=== PATIENT | male | born 1940 | race Two or more races ===

== ENCOUNTER 2020-11-20 07:16 | Inpatient (IN) | payer OTHER ==
[~2020-11-20] VITALS: Ht 182.9 cm; Wt 90.7 kg
[2020-11-20] MEDS ORDERED: DEXTROSE 50%-WATER 50 ML DISP.SYRIN IV ONE (07:30)
[2020-11-20] MEDS ORDERED: IV NS 0.9% 500 ML BAG IV ONE (07:30)
[2020-11-20 08:03] LABS: BASOPHILS % (AUTO) 0.3 % (0.0-2.0); EOSINOPHILS % (AUTO) 0.1 % (0.0-6.0); HEMATOCRIT 37 % (39-51); HEMOGLOBIN 12.2 g/dL (13.5-17.5); LYMPHOCYTES # (AUTO) 0.8 /CMM (0.8-4.8); LYMPHOCYTES % (AUTO) 13.7 % (20.0-44.0); MEAN CORPUSCULAR HGB CONC 33 g/dl (31.0-36.0); MEAN CORPUSCULAR VOLUME 84 fL (80-96); MONOCYTES # (AUTO) 0.4 /CMM (0.1-1.30); MONOCYTES % (AUTO) 6.6 % (2.0-12.0); NEUTROPHILS # (AUTO) 4.4 /CMM (1.8-8.9); NEUTROPHILS % (AUTO) 79.3 % (43.0-81.0); PLATELET COUNT (AUTO) 336 /CMM (150-450); RED BLOOD CELL COUNT(AUTO) 4.42 MIL/uL (4.5-6.0); WHITE BLOOD COUNT (AUTO) 5.5 K/uL (4.3-11.0)
--- NOTE | 2020-11-20 08:11 | NUR ---
PT REC'D TO ER VIA [facility] PT WEAKNESS BLOOD SUGAR 140 PT WAS D/C FROM [facility] 2 DAYS AGO WENT [facility] STILL WEAKNESS ALTERED IV RT HAND 20G INFUSING NS LABS DRAWN SENT TO LAB
[2020-11-20 08:28] LABS: SERUM AMMONIA 15 umol/L (11-32)
[2020-11-20 08:57] LABS: CALCIUM, SERUM 8.3 mg/dL (8.5-10.1); CARBON DIOXIDE 23 mmol/L (21-32); CHLORIDE 101 mmol/L (98-107); CREATININE 1.4 mg/dL (0.6-1.3); GLUCOSE 138 mg/dL (74-106); POTASSIUM 3.5 mmol/L (3.5-5.1); SODIUM SERUM 133 mmol/L (136-145); UREA NITROGEN, BLOOD 40 mg/dL (7-18)
[2020-11-20 09:03] LABS: ALANINE AMINOTRANSFERASE 19 U/L (12-78); ALKALINE PHOSPHATASE 80 U/L (46-116); ASPARTATE AMINOTRANSFERASE 23 U/L (15-37); BILIRUBIN,DIRECT 0.3 mg/dL (0.0-0.2); BILIRUBIN,TOTAL 0.5 mg/dL (0.2-1.0); TOTAL PROTEIN, SERUM 5.9 g/dL (6.4-8.2)
--- NOTE | 2020-11-20 12:29 | NUR ---
PT SITTING UP IN BED VSS FEEDING HIMSELF , ACCU CK 102
[2020-11-20] MEDS ORDERED: IV NS 0.9% 500 ML IV ONE (13:30)
[2020-11-20] MEDS: Potassium Chloride 10 MEQ in IV D5/ 0.9% NACL 1,000 ML IV PRN (14:38)
[2020-11-20 17:15] LABS: BILIRUBIN,URINE Negative (NEGATIVE); COLOR,URINE YELLOW (YELLOW); LEUKOCYTE ESTERASE ,URINE Negative (NEGATIVE); NITRITE, URINE Negative (NEGATIVE); PROTEIN,URINE Negative (NEGATIVE); UGLUCOSE >=1000 mg/dL (NEGATIVE); UROBILINOGEN,URINE 0.2 EU/dL (0.2)
[2020-11-20 17:23] LABS: BACTERIA,URINE Rare /HPF (None Seen); RBC,URINE 0-2 /HPF (0-2); SQUAMOUS EPITHELIAL CELL,UR Rare /HPF (None Seen); WBC,URINE 0-2 /HPF (0-3)
[2020-11-20 17:35] LABS: CALCIUM, SERUM 7.7 mg/dL (8.5-10.1); CREATININE 1.3 mg/dL (0.6-1.3); POTASSIUM 3.5 mmol/L (3.5-5.1)
--- NOTE | 2020-11-20 18:34 | NUR ---
jhoan ck 161pt eatting dinner
--- NOTE | 2020-11-21 14:46 | NUR ---
GOT CALL FROM MANAGEMENT, ROD PELAYO [phone]
--- NOTE | 2020-11-21 15:30 | NUR ---
CALLED [facility] [phone] TO FOLLOW UP. ITS BEEN ACTIVATED AND SHE WILL CALL US WITH AN ETA
[2020-11-21] MEDS: Potassium Chloride 10 MEQ in IV D5/ 0.9% NACL 1,000 ML IV PRN (16:00)
--- NOTE | 2020-11-21 16:37 | NUR ---
[facility] CALLED PT WILL BE PICKED UP AT 1900 TRANSPORT IS [facility] [phone]
--- NOTE | 2020-11-21 19:40 | NUR ---
PT PICKED UP. TRANSFERED BACK HOME. MORNING SHIFT NURSE SPOKE TO THE PTS FAMILY REAGARDING DISCHARGE.
[2020-11-21 23:29] VITALS: BP 121/76
== END 2020-11-21 19:40 | disposition home or self-care (01) | DRG 177 ==
LOC: ER 07:25 → TRANSITION 12:46
PROVIDERS: ADMIT Internal Medicine; ATTEND Internal Medicine
DX: U07.1 COVID-19 (principal); N17.0 Acute kidney failure with tubular necrosis; E87.1 Hypo-osmolality and hyponatremia; E86.0 Dehydration; E11.9 Type 2 diabetes mellitus without complications; Z86.73 Personal history of transient ischemic attack (TIA), and cerebral infarction without residual deficits; I10 Essential (primary) hypertension; R53.1 Weakness
CPT/HCPCS: 36415; 70450-TC; 71045-TC; 80048-TC; 80076-TC; 81001; 82140-TC; 82962-TC; 84484-TC; 85025-TC; 87086-TC; G0378; J3480; J7040; J7042

== ENCOUNTER 2023-10-02 17:45 | Inpatient (IN) | payer OTHER ==
[~2023-10-02] VITALS: Ht 172.7 cm; Wt 77.6 kg
[2023-10-02] MEDS ORDERED: PANT40TA2 PO (19:32)
[2023-10-02] MEDS ORDERED: GLIP5TAB13 PO (19:32)
[2023-10-02] MEDS ORDERED: HYDR-4076 PO (19:32)
[2023-10-02] MEDS ORDERED: ALLO300T2 PO (19:32)
[2023-10-02] MEDS ORDERED: CLON0.1T PO (19:32)
[2023-10-02] MEDS ORDERED: INSU100V7 SQ (19:32)
[2023-10-02] MEDS ORDERED: FURO-144 PO (19:32)
[2023-10-02] MEDS ORDERED: TAMS-12 PO (19:32)
[2023-10-02] MEDS ORDERED: FERR325T28 PO (19:32)
[2023-10-02] MEDS ORDERED: GABA300C PO (19:32)
[2023-10-02] MEDS ORDERED: LOSA50TA39 PO (19:32)
[2023-10-02] MEDS ORDERED: AMLO10TA4 PO (19:32)
[2023-10-02 19:59] LABS: BASOPHILS % (AUTO) 0.1 % (0.0-2.0); EOSINOPHILS % (AUTO) 0.1 % (0.0-6.0); HEMATOCRIT 27 % (39-51); HEMOGLOBIN 8.8 g/dL (13.5-17.5); LYMPHOCYTES # (AUTO) 0.3 K/uL (0.8-4.8); LYMPHOCYTES % (AUTO) 1.2 % (20.0-44.0); MEAN CORPUSCULAR HEMOGLOBIN 26 PG (26.0-33.0); MEAN CORPUSCULAR HGB CONC 32 g/dl (31.0-36.0); MEAN CORPUSCULAR VOLUME 79 fL (80-96); MONOCYTES # (AUTO) 0.5 K/uL (0.1-1.30); MONOCYTES % (AUTO) 2.4 % (2.0-12.0); NEUTROPHILS # (AUTO) 19.8 K/uL (1.8-8.9); NEUTROPHILS % (AUTO) 96.2 % (43.0-81.0); PLATELET COUNT (AUTO) 484 K/uL (150-450); RED BLOOD CELL COUNT(AUTO) 3.45 MIL/uL (4.5-6.0); WHITE BLOOD COUNT (AUTO) 20.6 K/uL (4.3-11.0)
[2023-10-02 20:29] LABS: CALCIUM, SERUM 8.6 mg/dL (8.5-10.1); CARBON DIOXIDE 22 mmol/L (21-32); CHLORIDE 99 mmol/L (98-107); CREATININE 2.2 mg/dL (0.6-1.3); GLUCOSE 307 mg/dL (74-106); POTASSIUM 5.4 mmol/L (3.5-5.1); SODIUM SERUM 130 mmol/L (136-145); UREA NITROGEN, BLOOD 52 mg/dL (7-18)
[2023-10-02 20:32] LABS: INR 1.15 (0.91-1.10); PARTIAL THROMBOPLASTIN TIME 32.5 SEC (24.3-34.3); PROTHROMBIN TIME 12.1 SECS (9.2-11.1)
[2023-10-02 20:42] LABS: ALANINE AMINOTRANSFERASE 19 U/L (12-78); ALBUMIN 2.3 g/dL (3.4-5.0); ALKALINE PHOSPHATASE 123 U/L (46-116); ASPARTATE AMINOTRANSFERASE 13 U/L (15-37); BILIRUBIN,DIRECT 0.1 mg/dL (0.0-0.2); BILIRUBIN,TOTAL 0.2 mg/dL (0.2-1.0); TOTAL PROTEIN, SERUM 6.6 g/dL (6.4-8.2)
[2023-10-02 20:56] LABS: BAND % (MANUAL) 7 % (0.0-5.0); NEUTROPHILS % (MANUAL) 90 (42-76)
[2023-10-02 20:57] LABS: ANISOCYTOSIS 1+; HYPOCHROMASIA 1+; LYMPHOCYTES % (MANUAL) 2 % (16-48); MONOCYTES % (MANUAL) 1 % (0-11.0); PLATELET ESTIMATE ADEQUATE; TARGET CELLS 1+
[2023-10-02] MEDS ORDERED: CEFTRIAXONE 1GM BAG (ER ONLY) 50 ML IV ONE (21:00)
[2023-10-02 21:09] LABS: APPEARANCE,URINE CLEAR (CLEAR); BILIRUBIN,URINE NEGATIVE (NEGATIVE); BLOOD, URINE NEGATIVE Ery/uL (NEGATIVE); COLOR,URINE YELLOW (YELLOW); KETONES,URINE NEGATIVE (NEGATIVE); LEUKOCYTE ESTERASE ,URINE 2+ (NEGATIVE); NITRITE, URINE NEGATIVE (NEGATIVE); PROTEIN,URINE TRACE mg/dl (NEGATIVE); UGLUCOSE NEGATIVE (NEGATIVE); UROBILINOGEN,URINE 0.2 EU/dL (0.2)
[2023-10-02 21:19] LABS: ADD URINE CULTURE YES; BACTERIA,URINE 3+ /HPF (None Seen); RBC,URINE 0-2 /HPF (0-2); SQUAMOUS EPITHELIAL CELL,UR Few /HPF (None Seen); WBC,URINE TOO NUMEROUS TO COUN /HPF (0-3)
[2023-10-02] MEDS ORDERED: AZITHROMYCIN 500 MG VIAL ONE (21:23)
[2023-10-02] MEDS: AZITHROMYCIN 500 MG in IV D5W 250 ML IV ONE ×2 (21:50→21:59)
[2023-10-02] MEDS ORDERED: ASPIRIN 81 MG TAB.CHEW PO ONE (22:30)
[2023-10-02] MEDS ORDERED: IV NS 0.9% 1,000 ML BAG IV ONE (22:30)
[2023-10-03 07:41] LABS: BASOPHILS % (AUTO) 0.2 % (0.0-2.0); EOSINOPHILS % (AUTO) 0.1 % (0.0-6.0); HEMATOCRIT 28 % (39-51); HEMOGLOBIN 8.7 g/dL (13.5-17.5); LYMPHOCYTES # (AUTO) 0.7 K/uL (0.8-4.8); LYMPHOCYTES % (AUTO) 3.5 % (20.0-44.0); MEAN CORPUSCULAR HEMOGLOBIN 25 PG (26.0-33.0); MEAN CORPUSCULAR HGB CONC 32 g/dl (31.0-36.0); MEAN CORPUSCULAR VOLUME 80 fL (80-96); MONOCYTES # (AUTO) 0.9 K/uL (0.1-1.30); MONOCYTES % (AUTO) 4.4 % (2.0-12.0); NEUTROPHILS # (AUTO) 18.5 K/uL (1.8-8.9); NEUTROPHILS % (AUTO) 91.8 % (43.0-81.0); PLATELET COUNT (AUTO) 410 K/uL (150-450); RED BLOOD CELL COUNT(AUTO) 3.43 MIL/uL (4.5-6.0); RED CELL DISTRIBUTION WIDTH 18.6 % (11.5-15.0); WHITE BLOOD COUNT (AUTO) 20.1 K/uL (4.3-11.0)
[2023-10-03 07:46] LABS: CALCIUM, SERUM 8.1 mg/dL (8.5-10.1); CARBON DIOXIDE 23 mmol/L (21-32); CHLORIDE 101 mmol/L (98-107); GLUCOSE 227 mg/dL (74-106); POTASSIUM 5.6 mmol/L (3.5-5.1); SODIUM SERUM 132 mmol/L (136-145); UREA NITROGEN, BLOOD 51 mg/dL (7-18)
[2023-10-03 08:01] LABS: THYROID STIMULATING HORMONE 0.609 uIU/mL (0.358-3.74)
[2023-10-03] MEDS ORDERED: IV NS 0.9% 500 ML IV SCH (10:00)
[2023-10-03] MEDS: METOPROLOL TARTRATE 25 MG TABLET PO SCH ×2 (10:26→23:03)
[2023-10-03] MEDS ORDERED: *INSULIN REGULAR(HUMULIN R)HUM 100 UNIT/ML VIAL SQ PRN ×2 (10:30→11:30)
[2023-10-03] MEDS ORDERED: INSULIN REGULAR, HUMAN 100 UNIT/ML 3 ML VIAL SQ PRN ×3 (10:30→12:00)
[2023-10-03] MEDS ORDERED: DEXTROSE 50%-WATER 50 ML DISP.SYRIN IV PRN ×3 (10:30→12:00)
[2023-10-03] MEDS ORDERED: FERROUS SULFATE (325 MG) 325 MG/TAB TABLET PO SCH (11:00)
[2023-10-03] MEDS: IV NS 0.9% 1,000 ML IV SCH ×2 (11:03→23:01)
[2023-10-03 11:14] LABS: THYROID STIMULATING HORMONE 0.598 uIU/mL (0.358-3.74)
[2023-10-03] MEDS: PANTOPRAZOLE 40 MG TABLET.DR PO SCH ×2 (11:14→16:44)
[2023-10-03] MEDS: TAMSULOSIN 0.4 MG CAP.SR.24H PO SCH (11:15)
[2023-10-03] MEDS: ALLOPURINOL 100 MG TABLET PO SCH (11:15)
[2023-10-03 11:19] LABS: BASOPHILS % (AUTO) 0.2 % (0.0-2.0); EOSINOPHILS % (AUTO) 0.1 % (0.0-6.0); HEMATOCRIT 29 % (39-51); LYMPHOCYTES # (AUTO) 0.6 K/uL (0.8-4.8); MEAN CORPUSCULAR HEMOGLOBIN 26 PG (26.0-33.0); MEAN CORPUSCULAR HGB CONC 31 g/dl (31.0-36.0); MEAN CORPUSCULAR VOLUME 83 fL (80-96); MONOCYTES # (AUTO) 0.8 K/uL (0.1-1.30); MONOCYTES % (AUTO) 3.9 % (2.0-12.0); NEUTROPHILS # (AUTO) 18.1 K/uL (1.8-8.9); NEUTROPHILS % (AUTO) 92.8 % (43.0-81.0); PLATELET COUNT (AUTO) 410 K/uL (150-450); RED BLOOD CELL COUNT(AUTO) 3.46 MIL/uL (4.5-6.0); RED CELL DISTRIBUTION WIDTH 18.3 % (11.5-15.0); WHITE BLOOD COUNT (AUTO) 19.5 K/uL (4.3-11.0)
[2023-10-03 11:30] LABS: CALCIUM, SERUM 9.5 mg/dL (8.5-10.1); CARBON DIOXIDE 23 mmol/L (21-32); CHLORIDE 103 mmol/L (98-107); CREATININE 1.8 mg/dL (0.6-1.3); GLUCOSE 190 mg/dL (74-106); POTASSIUM 5.3 mmol/L (3.5-5.1); SODIUM SERUM 133 mmol/L (136-145); UREA NITROGEN, BLOOD 51 mg/dL (7-18)
[2023-10-03 12:00] VITALS: BP 127/62; TEMP 98.6; O2SAT 95
[2023-10-03] MEDS ORDERED: BLOOD SUGAR DIAGNOSTIC 1 EACH STRIP VI SCH ×2 (12:00)
[2023-10-03] MEDS: BLOOD SUGAR DIAGNOSTIC 1 EACH STRIP VI SCH ×3 (12:02→22:00)
[2023-10-03 12:03] LABS: CHOLESTEROL 179 mg/dL (<200); HDL CHOLESTEROL 31 mg/dL (40-60); LDL 107 mg/dL (0-99); TRIGLYCERIDES 171 mg/dL (30-150)
[2023-10-03] MEDS: GABAPENTIN 300 MG CAPSULE PO SCH ×2 (12:11→16:44)
[2023-10-03 13:30] LABS: THYROID STIMULATING HORMONE 0.647 uIU/mL (0.358-3.74)
[2023-10-03 16:00] VITALS: BP 134/64; TEMP 98.4; O2SAT 97
[2023-10-03] MEDS: *INSULIN REGULAR(HUMULIN R)HUM 100 UNIT/ML VIAL SQ PRN (16:36)
[2023-10-03] MEDS: APIXABAN 2.5 MG TABLET PO SCH (16:48)
[2023-10-03 20:00] VITALS: BP 124/65; TEMP 98.7; O2SAT 92
[2023-10-03] MEDS ORDERED: CEFTRIAXONE 1 G in IV D5W 50 ML IV SCH (21:00)
[2023-10-03] MEDS ORDERED: HEPARIN SODIUM, PORCINE 5000 UNITS/1 ML VIAL SQ SCH (21:00)
[2023-10-03 22:00] VITALS: BP 124/65; TEMP 98.7; O2SAT 92
[2023-10-03] MEDS: AZITHROMYCIN 500 MG in IV D5W 250 ML IV SCH (23:20)
[2023-10-03] MEDS: INSULIN GLARGINE, 100 UNIT/ML CARTRIDGE SQ SCH (23:22)
[2023-10-04] VITALS (73 sets, daily range): BP systolic 80–164; BP diastolic 43–89; TEMP 94.6–98.7; O2SAT 81–100
[2023-10-04] MEDS ORDERED: NOREPINEPHRINE 8 MG in IV NS 0.9% 242 ML IV PRN ×4 (05:00)
[2023-10-04] MEDS ORDERED: NOREPINEPHRINE 4 MG/4 ML AMPUL IV ONE (05:38)
[2023-10-04] MEDS: IV NS 0.9% 1,000 ML IV SCH (07:00)
[2023-10-04] MEDS ORDERED: NOREPINEPHRINE 32 MG in IV NS 0.9% 250 ML IV PRN ×2 (07:30→12:00)
[2023-10-04 08:16] LABS: BASOPHILS % (AUTO) 0.1 % (0.0-2.0); HEMATOCRIT 30 % (39-51); LYMPHOCYTES # (AUTO) 0.4 K/uL (0.8-4.8); LYMPHOCYTES % (AUTO) 1.8 % (20.0-44.0); MEAN CORPUSCULAR HEMOGLOBIN 25 PG (26.0-33.0); MEAN CORPUSCULAR HGB CONC 30 g/dl (31.0-36.0); MEAN CORPUSCULAR VOLUME 83 fL (80-96); MONOCYTES # (AUTO) 0.6 K/uL (0.1-1.30); MONOCYTES % (AUTO) 2.5 % (2.0-12.0); NEUTROPHILS # (AUTO) 23.1 K/uL (1.8-8.9); NEUTROPHILS % (AUTO) 95.6 % (43.0-81.0); PLATELET COUNT (AUTO) 461 K/uL (150-450); RED BLOOD CELL COUNT(AUTO) 3.63 MIL/uL (4.5-6.0); RED CELL DISTRIBUTION WIDTH 19.1 % (11.5-15.0); WHITE BLOOD COUNT (AUTO) 24.2 K/uL (4.3-11.0)
[2023-10-04] MEDS: METOPROLOL TARTRATE 25 MG TABLET PO SCH ×2 (09:00→21:00)
[2023-10-04] MEDS: PANTOPRAZOLE 40 MG TABLET.DR PO SCH ×2 (09:00→17:00)
[2023-10-04] MEDS: GABAPENTIN 300 MG CAPSULE PO SCH (09:00)
[2023-10-04] MEDS: APIXABAN 2.5 MG TABLET PO SCH ×2 (09:00→17:00)
[2023-10-04] MEDS: TAMSULOSIN 0.4 MG CAP.SR.24H PO SCH (09:00)
[2023-10-04] MEDS: ALLOPURINOL 100 MG TABLET PO SCH (09:00)
[2023-10-04] MEDS: BLOOD SUGAR DIAGNOSTIC 1 EACH STRIP VI SCH (09:17)
[2023-10-04] MEDS: IV NS 0.9% 1,000 ML IV PRN ×2 (09:22→14:15)
[2023-10-04] MEDS: *INSULIN REGULAR(HUMULIN R)HUM 100 UNIT/ML VIAL SQ PRN (09:27)
[2023-10-04] MEDS ORDERED: FUROSEMIDE 20 MG/2 ML VIAL IV ONE (09:30)
[2023-10-04] MEDS ORDERED: DEXTROSE 50%-WATER 50 ML DISP.SYRIN IV PRN (09:30)
[2023-10-04 09:32] LABS: CARBON DIOXIDE 28 mmol/L (21-32); CHLORIDE 103 mmol/L (98-107); POTASSIUM 4.3 mmol/L (3.5-5.1); SODIUM SERUM 140 mmol/L (136-145)
[2023-10-04 09:33] LABS: ALANINE AMINOTRANSFERASE 52 U/L (12-78); ALKALINE PHOSPHATASE 58 U/L (46-116); ASPARTATE AMINOTRANSFERASE 41 U/L (15-37); BILIRUBIN,TOTAL 0.7 mg/dL (0.2-1.0); CALCIUM, SERUM 9.1 mg/dL (8.5-10.1); CREATININE 0.8 mg/dL (0.6-1.3); GLUCOSE 107 mg/dL (74-106); TOTAL PROTEIN, SERUM 8.7 g/dL (6.4-8.2); UREA NITROGEN, BLOOD 16 mg/dL (7-18)
[2023-10-04 09:54] LABS: MAGNESIUM 2.1 mg/dL (1.8-2.4); PHOSPHORUS 5.8 mg/dL (2.5-4.9)
[2023-10-04] MEDS ORDERED: Z GUARD REMEDY 4 OZ OINT TP PRN (10:30)
[2023-10-04] MEDS: Z GUARD REMEDY 4 OZ OINT TP SCH (11:05)
[2023-10-04] MEDS: IPRATROPIUM NEB FS 0.5 MG/2.5 ML AMPUL.NEB NEB SCH ×3 (12:00→19:31)
[2023-10-04] MEDS: PIPERACILLIN /TAZOBACTAM 2.25 G in IV D5W 50 ML IV SCH ×2 (12:12→17:57)
[2023-10-04] MEDS: INSULIN REGULAR, HUMAN 100 UNIT/ML 3 ML VIAL SQ PRN ×2 (12:14→18:05)
[2023-10-04] MEDS: BLOOD SUGAR DIAGNOSTIC 1 EACH STRIP IN SCH ×2 (12:28→17:56)
[2023-10-04] MEDS: SOD FERRIC GLUC 125 MG in IV NS 0.9% 100 ML IV SCH (14:14)
[2023-10-04] MEDS: AZITHROMYCIN 500 MG in IV D5W 250 ML IV SCH (21:26)
[2023-10-04] MEDS ORDERED: MORPHINE SULFATE INJ 2 MG/ML DISP.SYRIN IV PRN (21:30)
[2023-10-04] MEDS ORDERED: ONDANSETRON HCL/PF 4 MG/2 ML VIAL IV PRN (21:30)
[2023-10-04] MEDS: INSULIN GLARGINE, 100 UNIT/ML CARTRIDGE SQ SCH (21:45)
[2023-10-05] VITALS (49 sets, daily range): BP systolic 113–154; BP diastolic 44–83; TEMP 97.4–98.3; O2SAT 92–100
[2023-10-05] MEDS: PIPERACILLIN /TAZOBACTAM 2.25 G in IV D5W 50 ML IV SCH ×5 (00:18→23:23)
[2023-10-05] MEDS: BLOOD SUGAR DIAGNOSTIC 1 EACH STRIP IN SCH ×5 (00:31→23:15)
[2023-10-05] MEDS: INSULIN REGULAR, HUMAN 100 UNIT/ML 3 ML VIAL SQ PRN ×5 (00:32→23:17)
[2023-10-05] MEDS: IPRATROPIUM NEB FS 0.5 MG/2.5 ML AMPUL.NEB NEB SCH ×4 (01:17→19:59)
[2023-10-05 02:48] LABS: CREATININE, URINE 65.7 MG/DL (30.0-125.0); URINE TOTAL PROTEIN 76.3 mg/dL (0-11.9)
[2023-10-05] MEDS: IV NS 0.9% 1,000 ML IV PRN (04:16)
[2023-10-05 05:29] LABS: CALCIUM, SERUM 8.6 mg/dL (8.5-10.1); CARBON DIOXIDE 20 mmol/L (21-32); CHLORIDE 109 mmol/L (98-107); CREATININE 1.8 mg/dL (0.6-1.3); GLUCOSE 185 mg/dL (74-106); POTASSIUM 5.4 mmol/L (3.5-5.1); SODIUM SERUM 139 mmol/L (136-145); UREA NITROGEN, BLOOD 51 mg/dL (7-18)
[2023-10-05 05:33] LABS: ALANINE AMINOTRANSFERASE 15 U/L (12-78); ALBUMIN 1.6 g/dL (3.4-5.0); ALKALINE PHOSPHATASE 94 U/L (46-116); ASPARTATE AMINOTRANSFERASE 30 U/L (15-37); BILIRUBIN,TOTAL 0.3 mg/dL (0.2-1.0); MAGNESIUM 2.4 mg/dL (1.8-2.4); PHOSPHORUS 3.1 mg/dL (2.5-4.9)
[2023-10-05 05:37] LABS: LACTIC ACID 0.8 mmol/L (0.4-2.0)
[2023-10-05 05:40] LABS: BASOPHILS % (AUTO) 0.2 % (0.0-2.0); HEMATOCRIT 26 % (39-51); HEMOGLOBIN 8.1 g/dL (13.5-17.5); LYMPHOCYTES # (AUTO) 0.6 K/uL (0.8-4.8); LYMPHOCYTES % (AUTO) 3.5 % (20.0-44.0); MEAN CORPUSCULAR HEMOGLOBIN 25 PG (26.0-33.0); MEAN CORPUSCULAR HGB CONC 32 g/dl (31.0-36.0); MEAN CORPUSCULAR VOLUME 80 fL (80-96); MONOCYTES # (AUTO) 0.8 K/uL (0.1-1.30); MONOCYTES % (AUTO) 4.7 % (2.0-12.0); NEUTROPHILS # (AUTO) 15.2 K/uL (1.8-8.9); NEUTROPHILS % (AUTO) 91.6 % (43.0-81.0); PLATELET COUNT (AUTO) 431 K/uL (150-450); RED BLOOD CELL COUNT(AUTO) 3.21 MIL/uL (4.5-6.0); RED CELL DISTRIBUTION WIDTH 18.7 % (11.5-15.0); WHITE BLOOD COUNT (AUTO) 16.6 K/uL (4.3-11.0)
[2023-10-05 07:00] LABS: ABG BASE EXCESS -11.3 mmol/L; ABG OXYGEN SATURATION 99.3 % (92.0-98.5); ABG PCO2 53.9 mmHg (35.0-45.0); ABG PH 7.132 (7.350-7.450); ABG PO2 295.8 mmHg (75.0-100.0); ABG TOTAL HEMOGLOBIN 10.5 G/dL (13.5-18.0); AaDO2 363.3 mmHg; COHb 0.3 % (0.5-1.5); MetHb 0.3 % (0.0-1.5); O2Hb 98.7 % (94.0-97.0); SITE, ABG Right Radial
[2023-10-05 07:00] LABS: ABG BASE EXCESS -12.2 mmol/L; ABG OXYGEN SATURATION 91.6 % (92.0-98.5); ABG PCO2 89.3 mmHg (35.0-45.0); ABG PH 6.971 (7.350-7.450); ABG PO2 75.3 mmHg (75.0-100.0); ABG TOTAL HEMOGLOBIN 10.2 G/dL (13.5-18.0); AaDO2 401.3 mmHg; COHb 0.3 % (0.5-1.5); MetHb 0.2 % (0.0-1.5); O2Hb 91.1 % (94.0-97.0); SITE, ABG Right Radial; VENT MODE, BG NRB
[2023-10-05] MEDS ORDERED: SODIUM POLYSTYRENE SULFONATE 15 G/60 ML BOTTLE PO ONE (08:00)
[2023-10-05] MEDS: PANTOPRAZOLE 40 MG TABLET.DR PO SCH ×2 (09:00→17:00)
[2023-10-05] MEDS: APIXABAN 2.5 MG TABLET PO SCH (09:00)
[2023-10-05] MEDS ORDERED: FUROSEMIDE 20 MG/2 ML VIAL IV ONE (09:00)
[2023-10-05] MEDS: ALLOPURINOL 100 MG TABLET PO SCH (09:00)
[2023-10-05] MEDS: TAMSULOSIN 0.4 MG CAP.SR.24H PO SCH (09:00)
[2023-10-05] MEDS: METOPROLOL TARTRATE 25 MG TABLET PO SCH ×2 (09:00→21:00)
[2023-10-05] MEDS: Z GUARD REMEDY 4 OZ OINT TP SCH (09:40)
[2023-10-05] MEDS ORDERED: DIGOXIN INJ 0.5 MG/2 ML AMPUL IV ONE (10:30)
[2023-10-05] MEDS ORDERED: Sodium Bicarbonate 100 MEQ in IV 1/2NS 1000 ML 1,000 ML IV SCH (11:00)
[2023-10-05] MEDS ORDERED: IV NS 0.9% 250 ML IV PRN (11:30)
[2023-10-05] MEDS: FLUCONAZOLE IN NS 100 MG in PREMIX 1 EA IV SCH ×2 (11:31)
[2023-10-05] MEDS: HEPARIN SODIUM, PORCINE 5000 UNITS/1 ML VIAL SQ SCH ×2 (11:33→19:00)
[2023-10-05 11:53] LABS: ANISOCYTOSIS 1+; BASOPHILS % (MANUAL) 0 % (0.0-2.0); EOSINOPHILS % (MANUAL) 0 % (0-4); HYPOCHROMASIA 1+; LYMPHOCYTES % (MANUAL) 6 % (16-48); MONOCYTES % (MANUAL) 5 % (0-11.0); NEUTROPHILS % (MANUAL) 89 (42-76); PLATELET ESTIMATE ADEQUATE
[2023-10-05] MEDS: SOD FERRIC GLUC 125 MG in IV NS 0.9% 100 ML IV SCH (14:33)
[2023-10-05 15:07] LABS: CALCIUM, SERUM 8.8 mg/dL (8.5-10.1); CARBON DIOXIDE 23 mmol/L (21-32); CHLORIDE 111 mmol/L (98-107); CREATININE 1.7 mg/dL (0.6-1.3); GLUCOSE 184 mg/dL (74-106); POTASSIUM 4.7 mmol/L (3.5-5.1); SODIUM SERUM 142 mmol/L (136-145); UREA NITROGEN, BLOOD 49 mg/dL (7-18)
[2023-10-05] MEDS: AZITHROMYCIN 500 MG in IV D5W 250 ML IV SCH (21:10)
[2023-10-05] MEDS: INSULIN GLARGINE, 100 UNIT/ML CARTRIDGE SQ SCH (21:17)
[2023-10-06] VITALS (35 sets, daily range): BP systolic 132–171; BP diastolic 54–143; TEMP 97.5–98; O2SAT 95–100
[2023-10-06] MEDS: IPRATROPIUM NEB FS 0.5 MG/2.5 ML AMPUL.NEB NEB SCH ×4 (01:53→19:50)
[2023-10-06] MEDS: HEPARIN SODIUM, PORCINE 5000 UNITS/1 ML VIAL SQ SCH ×3 (02:33→17:34)
[2023-10-06 05:05] LABS: BASOPHILS % (AUTO) 0.3 % (0.0-2.0); EOSINOPHILS % (AUTO) 0.2 % (0.0-6.0); HEMATOCRIT 28 % (39-51); HEMOGLOBIN 8.9 g/dL (13.5-17.5); LYMPHOCYTES # (AUTO) 0.7 K/uL (0.8-4.8); LYMPHOCYTES % (AUTO) 6.6 % (20.0-44.0); MEAN CORPUSCULAR HEMOGLOBIN 25 PG (26.0-33.0); MEAN CORPUSCULAR HGB CONC 32 g/dl (31.0-36.0); MEAN CORPUSCULAR VOLUME 80 fL (80-96); MONOCYTES # (AUTO) 0.5 K/uL (0.1-1.30); MONOCYTES % (AUTO) 4.9 % (2.0-12.0); NEUTROPHILS # (AUTO) 9.2 K/uL (1.8-8.9); PLATELET COUNT (AUTO) 455 K/uL (150-450); RED BLOOD CELL COUNT(AUTO) 3.51 MIL/uL (4.5-6.0); RED CELL DISTRIBUTION WIDTH 18.9 % (11.5-15.0); WHITE BLOOD COUNT (AUTO) 10.4 K/uL (4.3-11.0)
[2023-10-06] MEDS: PIPERACILLIN /TAZOBACTAM 2.25 G in IV D5W 50 ML IV SCH ×4 (05:11→23:32)
[2023-10-06] MEDS: BLOOD SUGAR DIAGNOSTIC 1 EACH STRIP IN SCH ×4 (05:11→23:44)
[2023-10-06] MEDS: INSULIN REGULAR, HUMAN 100 UNIT/ML 3 ML VIAL SQ PRN ×3 (05:11→17:34)
[2023-10-06 05:28] LABS: ALANINE AMINOTRANSFERASE 15 U/L (12-78); ALBUMIN 1.8 g/dL (3.4-5.0); ALKALINE PHOSPHATASE 99 U/L (46-116); ASPARTATE AMINOTRANSFERASE 11 U/L (15-37); BILIRUBIN,TOTAL 0.4 mg/dL (0.2-1.0); CALCIUM, SERUM 9.3 mg/dL (8.5-10.1); CARBON DIOXIDE 25 mmol/L (21-32); CHLORIDE 111 mmol/L (98-107); CREATININE 1.4 mg/dL (0.6-1.3); GLUCOSE 141 mg/dL (74-106); MAGNESIUM 2.1 mg/dL (1.8-2.4); PHOSPHORUS 2.5 mg/dL (2.5-4.9); POTASSIUM 4.1 mmol/L (3.5-5.1); SODIUM SERUM 145 mmol/L (136-145); TOTAL PROTEIN, SERUM 6.3 g/dL (6.4-8.2); UREA NITROGEN, BLOOD 38 mg/dL (7-18)
[2023-10-06] MEDS: PANTOPRAZOLE 40 MG TABLET.DR PO SCH ×2 (08:32→17:33)
[2023-10-06] MEDS: TAMSULOSIN 0.4 MG CAP.SR.24H PO SCH (08:32)
[2023-10-06] MEDS: METOPROLOL TARTRATE 25 MG TABLET PO SCH ×2 (08:32→21:16)
[2023-10-06] MEDS: ALLOPURINOL 100 MG TABLET PO SCH (08:32)
[2023-10-06] MEDS: FUROSEMIDE 40 MG/4 ML VIAL IV SCH ×2 (08:36→13:39)
[2023-10-06] MEDS: Z GUARD REMEDY 4 OZ OINT TP SCH (08:36)
[2023-10-06] MEDS: FLUCONAZOLE IN NS 100 MG in PREMIX 1 EA IV SCH ×2 (10:15)
[2023-10-06] MEDS ORDERED: HYDROCODONE/APAP 10/325MG TABLET PO PRN ×2 (11:30)
[2023-10-06] MEDS ORDERED: HYDROCODONE/APAP 5/325MG TABLET PO PRN ×2 (11:30)
[2023-10-06] MEDS: SOD FERRIC GLUC 125 MG in IV NS 0.9% 100 ML IV SCH (13:55)
[2023-10-06] MEDS: AZITHROMYCIN 500 MG in IV D5W 250 ML IV SCH (21:16)
[2023-10-06] MEDS: INSULIN GLARGINE, 100 UNIT/ML CARTRIDGE SQ SCH (22:00)
[2023-10-07] VITALS (25 sets, daily range): BP systolic 137–159; BP diastolic 49–62; TEMP 97.7–98.2; O2SAT 95–100
[2023-10-07] MEDS: IPRATROPIUM NEB FS 0.5 MG/2.5 ML AMPUL.NEB NEB SCH ×4 (01:53→19:51)
[2023-10-07 01:58] LABS: ABG BASE EXCESS -0.5 mmol/L; ABG OXYGEN SATURATION 94.5 % (92.0-98.5); ABG PCO2 33.6 mmHg (35.0-45.0); ABG PH 7.453 (7.350-7.450); ABG TOTAL HEMOGLOBIN 10.3 G/dL (13.5-18.0); AaDO2 283.8 mmHg; COHb 0.3 % (0.5-1.5); O2Hb 94.2 % (94.0-97.0); SITE, ABG Right Radial
[2023-10-07 01:58] LABS: ABG BASE EXCESS -9.3 mmol/L; ABG OXYGEN SATURATION 89.7 % (92.0-98.5); ABG PCO2 61.3 mmHg (35.0-45.0); ABG PH 7.133 (7.350-7.450); ABG PO2 72.1 mmHg (75.0-100.0); ABG TOTAL HEMOGLOBIN 10.9 G/dL (13.5-18.0); AaDO2 237.3 mmHg; COHb 0.3 % (0.5-1.5); MetHb 0.3 % (0.0-1.5); O2Hb 89.2 % (94.0-97.0); SITE, ABG Right Brachial; VENT MODE, BG SIMPLE MASK
[2023-10-07] MEDS: HEPARIN SODIUM, PORCINE 5000 UNITS/1 ML VIAL SQ SCH (03:09)
[2023-10-07] MEDS: PIPERACILLIN /TAZOBACTAM 2.25 G in IV D5W 50 ML IV SCH (05:21)
[2023-10-07] MEDS: BLOOD SUGAR DIAGNOSTIC 1 EACH STRIP IN SCH ×3 (05:21→18:11)
[2023-10-07 05:34] LABS: BASOPHILS % (AUTO) 0.2 % (0.0-2.0); EOSINOPHILS % (AUTO) 0.7 % (0.0-6.0); HEMATOCRIT 29 % (39-51); HEMOGLOBIN 9.4 g/dL (13.5-17.5); LYMPHOCYTES # (AUTO) 0.6 K/uL (0.8-4.8); LYMPHOCYTES % (AUTO) 8.5 % (20.0-44.0); MEAN CORPUSCULAR HEMOGLOBIN 25 PG (26.0-33.0); MEAN CORPUSCULAR HGB CONC 32 g/dl (31.0-36.0); MEAN CORPUSCULAR VOLUME 79 fL (80-96); MONOCYTES # (AUTO) 0.4 K/uL (0.1-1.30); MONOCYTES % (AUTO) 6.3 % (2.0-12.0); NEUTROPHILS # (AUTO) 5.6 K/uL (1.8-8.9); NEUTROPHILS % (AUTO) 84.3 % (43.0-81.0); PLATELET COUNT (AUTO) 484 K/uL (150-450); RED BLOOD CELL COUNT(AUTO) 3.69 MIL/uL (4.5-6.0); RED CELL DISTRIBUTION WIDTH 18.7 % (11.5-15.0); WHITE BLOOD COUNT (AUTO) 6.6 K/uL (4.3-11.0)
[2023-10-07 05:55] LABS: ALANINE AMINOTRANSFERASE 13 U/L (12-78); ALBUMIN 1.9 g/dL (3.4-5.0); ALKALINE PHOSPHATASE 96 U/L (46-116); ASPARTATE AMINOTRANSFERASE 10 U/L (15-37); BILIRUBIN,TOTAL 0.7 mg/dL (0.2-1.0); CALCIUM, SERUM 9.2 mg/dL (8.5-10.1); CARBON DIOXIDE 29 mmol/L (21-32); CHLORIDE 106 mmol/L (98-107); CREATININE 1.2 mg/dL (0.6-1.3); GLUCOSE 196 mg/dL (74-106); MAGNESIUM 1.6 mg/dL (1.8-2.4); PHOSPHORUS 3.3 mg/dL (2.5-4.9); POTASSIUM 3.6 mmol/L (3.5-5.1); SODIUM SERUM 144 mmol/L (136-145); TOTAL PROTEIN, SERUM 6.4 g/dL (6.4-8.2); UREA NITROGEN, BLOOD 29 mg/dL (7-18)
[2023-10-07] MEDS ORDERED: ACETAMINOPHEN 325 MG TABLET PO PRN (08:00)
[2023-10-07] MEDS: ALLOPURINOL 100 MG TABLET PO SCH (09:04)
[2023-10-07] MEDS: TAMSULOSIN 0.4 MG CAP.SR.24H PO SCH (09:05)
[2023-10-07] MEDS: POTASSIUM CHLORIDE 20 MEQ TAB.PRT.SR PO SCH ×2 (09:05→10:40)
[2023-10-07] MEDS: PANTOPRAZOLE 40 MG TABLET.DR PO SCH ×2 (09:06→17:44)
[2023-10-07] MEDS: METOPROLOL TARTRATE 25 MG TABLET PO SCH ×2 (09:06→21:46)
[2023-10-07] MEDS: Magnesium 1GM/D5W 100ML PREMIX 100 ML IV SCH ×2 (09:07→10:40)
[2023-10-07] MEDS: APIXABAN 5 MG TABLET PO SCH ×2 (09:07→17:44)
[2023-10-07] MEDS: FUROSEMIDE 40 MG/4 ML VIAL IV SCH ×3 (09:09→17:45)
[2023-10-07] MEDS: Z GUARD REMEDY 4 OZ OINT TP SCH (09:11)
[2023-10-07] MEDS: PIPERACILLIN /TAZOBACTAM 3.375 G in IV D5W 100 ML IV SCH ×2 (12:05→21:39)
[2023-10-07] MEDS: INSULIN REGULAR, HUMAN 100 UNIT/ML 3 ML VIAL SQ PRN ×2 (12:13→17:58)
[2023-10-07] MEDS: SOD FERRIC GLUC 125 MG in IV NS 0.9% 100 ML IV SCH (15:10)
[2023-10-07] MEDS: PROSOURCE / PROSTAT (PYXIS) 30 ML UDC PO SCH (17:45)
[2023-10-07] MEDS ORDERED: INSULIN GLARGINE, 100 UNIT/ML CARTRIDGE SQ SCH (22:00)
[2023-10-08] VITALS (8 sets, daily range): BP systolic 115–153; BP diastolic 51–66; TEMP 97.7–98.4; O2SAT 98–100
[2023-10-08] MEDS: BLOOD SUGAR DIAGNOSTIC 1 EACH STRIP IN SCH ×3 (00:34→11:50)
[2023-10-08] MEDS: INSULIN REGULAR, HUMAN 100 UNIT/ML 3 ML VIAL SQ PRN ×3 (00:47→11:56)
[2023-10-08] MEDS: IPRATROPIUM NEB FS 0.5 MG/2.5 ML AMPUL.NEB NEB SCH ×4 (01:00→14:21)
[2023-10-08] MEDS: PIPERACILLIN /TAZOBACTAM 3.375 G in IV D5W 100 ML IV SCH ×2 (04:47→12:03)
[2023-10-08 06:33] LABS: BASOPHILS % (AUTO) 0.2 % (0.0-2.0); EOSINOPHILS # (AUTO) 0.1 K/uL (0.0-0.7); EOSINOPHILS % (AUTO) 1.7 % (0.0-6.0); HEMATOCRIT 30 % (39-51); HEMOGLOBIN 9.6 g/dL (13.5-17.5); LYMPHOCYTES # (AUTO) 0.7 K/uL (0.8-4.8); LYMPHOCYTES % (AUTO) 9.7 % (20.0-44.0); MEAN CORPUSCULAR HEMOGLOBIN 25 PG (26.0-33.0); MEAN CORPUSCULAR HGB CONC 32 g/dl (31.0-36.0); MEAN CORPUSCULAR VOLUME 79 fL (80-96); MONOCYTES # (AUTO) 0.5 K/uL (0.1-1.30); MONOCYTES % (AUTO) 6.2 % (2.0-12.0); NEUTROPHILS # (AUTO) 6.4 K/uL (1.8-8.9); NEUTROPHILS % (AUTO) 82.2 % (43.0-81.0); PLATELET COUNT (AUTO) 470 K/uL (150-450); RED BLOOD CELL COUNT(AUTO) 3.83 MIL/uL (4.5-6.0); WHITE BLOOD COUNT (AUTO) 7.7 K/uL (4.3-11.0)
[2023-10-08 06:59] LABS: ALBUMIN 1.9 g/dL (3.4-5.0); BILIRUBIN,TOTAL 0.6 mg/dL (0.2-1.0); CALCIUM, SERUM 9.3 mg/dL (8.5-10.1); MAGNESIUM 1.9 mg/dL (1.8-2.4); POTASSIUM 3.7 mmol/L (3.5-5.1); TOTAL PROTEIN, SERUM 6.4 g/dL (6.4-8.2)
[2023-10-08] MEDS: PROSOURCE / PROSTAT (PYXIS) 30 ML UDC PO SCH ×3 (08:19→17:10)
[2023-10-08] MEDS: APIXABAN 5 MG TABLET PO SCH ×2 (09:02→17:10)
[2023-10-08] MEDS: METOPROLOL TARTRATE 25 MG TABLET PO SCH (09:03)
[2023-10-08] MEDS: PANTOPRAZOLE 40 MG TABLET.DR PO SCH ×2 (09:03→17:10)
[2023-10-08] MEDS: TAMSULOSIN 0.4 MG CAP.SR.24H PO SCH (09:03)
[2023-10-08] MEDS: ALLOPURINOL 100 MG TABLET PO SCH (09:03)
[2023-10-08] MEDS: Z GUARD REMEDY 4 OZ OINT TP SCH (09:25)
[2023-10-08] MEDS ORDERED: AMLODIPINE BESYLATE 5 MG TABLET PO SCH (10:00)
[2023-10-08] MEDS ORDERED: LOSARTAN POTASSIUM 50 MG TABLET PO SCH (10:00)
[2023-10-08] MEDS: SOD FERRIC GLUC 125 MG in IV NS 0.9% 100 ML IV SCH (14:49)
[2023-10-08] MEDS ORDERED: METFORMIN 500 MG TABLET PO SCH (17:00)
== END 2023-10-08 18:25 | DRG 871 ==
LOC: ER 18:18 → TRANSITION 10-03 06:03 → TELE-TD 10-03 07:38 → ICU 10-04 05:25 → TELE 10-07 13:03 → MED 10-08 12:59
PROVIDERS: ADMIT Internal Medicine; ATTEND Internal Medicine
PROC: 5A09457 Assistance with Respiratory Ventilation, 24-96 Consecutive Hours, Continuous Positive Airway Pressure (ICD-10-PCS; principal; 2023-10-04)
PROC: 05HB33Z Insertion of Infusion Device into Right Basilic Vein, Percutaneous Approach (ICD-10-PCS; 2023-10-05)
DX: A41.9 Sepsis, unspecified organism (principal); G92.8 Other toxic encephalopathy; I21.A1 Myocardial infarction type 2; J69.0 Pneumonitis due to inhalation of food and vomit; J96.01 Acute respiratory failure with hypoxia; J96.02 Acute respiratory failure with hypercapnia; R65.21 Severe sepsis with septic shock; N17.0 Acute kidney failure with tubular necrosis; N39.0 Urinary tract infection, site not specified; E87.1 Hypo-osmolality and hyponatremia; I48.92 Unspecified atrial flutter; E87.20 Acidosis, unspecified; I48.20 Chronic atrial fibrillation, unspecified; I11.0 Hypertensive heart disease with heart failure; I50.9 Heart failure, unspecified; R65.20 Severe sepsis without septic shock; Z20.822 Contact with and (suspected) exposure to COVID-19; Z95.0 Presence of cardiac pacemaker; Z86.73 Personal history of transient ischemic attack (TIA), and cerebral infarction without residual deficits; E11.9 Type 2 diabetes mellitus without complications; Z79.4 Long term (current) use of insulin; Z79.84 Long term (current) use of oral hypoglycemic drugs; Z79.899 Other long term (current) drug therapy; D63.8 Anemia in other chronic diseases classified elsewhere; N40.0 Benign prostatic hyperplasia without lower urinary tract symptoms; E87.5 Hyperkalemia; M89.8X9 Other specified disorders of bone, unspecified site; Z66 Do not resuscitate; D50.9 Iron deficiency anemia, unspecified; E86.9 Volume depletion, unspecified; I49.9 Cardiac arrhythmia, unspecified; B96.20 Unspecified Escherichia coli [E. coli] as the cause of diseases classified elsewhere
CPT/HCPCS: 36415; 36600; 71045-TC; 76770-TC; 80048-TC; 80053-TC; 80061-TC; 80076-TC; 81001; 82570-TC; 82728-TC; 82803-TC; 82962-TC; 83540-TC; 83605-TC; 83735-TC; 83880; 84100-TC; 84300-TC; 84443-TC; 84484-TC; 85025-TC; 85652-TC; 85730-TC; 87040-TC; 87086-TC; 87186-TC; 92526; 92611-TC; 93307-TC; 93970-TC; 94799-TC; A4216; A4223; A4624; A6403; C9803; G0378; J0456; J0696; J1160; J1450; J1644; J1815; J1940; J2270; J2543; J2916; J3475; J3490; J7030; J7050; J7060